=== PATIENT | female | born 1955 | race African-American/Black ===

== ENCOUNTER 2016-12-05 13:57 | Emergency (ER) | payer OTHER ==
[~2016-12-05] VITALS: Ht 162.6 cm; Wt 46.1 kg
[~2016-12-05 13:57] MED LIST: ASPIR 8181 M1 PO; NABI650T PO; Nephro-Vite,Rena-Vit PO; Phoslo PO; RENVELA800 MG PO; Rocaltrol PO; Sodium Bicarbonate PO; TRAZODONE HCL50 MG PO; VITAMIN D1000 INTUN PO; Vitamin B-12 PO
[2016-12-05 16:23] LABS: HEMATOCRIT 32.8 % (36.0-46.0); MCH 27.9 PG (29.0-34.0); MCHC 31.1 G/DL (30.0-36.0); MCV 89.9 FL (83-99); MEAN PLAT.VOLUME 9.4 uM^3 (9.5-12.4); PLATELET COUNT 163 K/uL (156-360); RBC DIS.WIDTH-CV 14.6 % (11.8-14.6); RBC DIS.WIDTH-SD 46.7 % (39-53); RED BLOOD COUNT 3.65 M/uL (3.80-5.20); WHITE BLOOD COUNT 11.5 K/uL (4.1-10.2)
[2016-12-05 16:30] LABS: CHLORIDE 99 mEq/L (99-109); POTASSIUM 3.7 mEq/L (3.7-5.4); SODIUM 138 mEq/L (136-147)
[2016-12-05 16:32] LABS: GLUCOSE 107 mg/dL (70-99)
[2016-12-05 16:33] LABS: ANION GAP 13 MEQ/L (2-14)
[2016-12-05 16:36] LABS: GFR ESTIMATE (CALCULATED) 6 mL/min/
[2016-12-05 16:37] LABS: UREA NITROGEN (BUN) 33 mg/dL (9-23)
[2016-12-05] MEDS ORDERED: OXAYDO5 MG PO (16:44)
[2016-12-05] MEDS ORDERED: SENSIPAR30 MG PO (16:44)
[2016-12-05 17:12] LABS: ADD MIUA? YES; BILIRUBIN NEGATIVE; BLOOD LARGE; COLOR YELLOW ((YELLOW)); GLUCOSE (STRIP) NEGATIVE; KETONES NEGATIVE; LEUKOCYTES MODERATE; NITRITE NEGATIVE; PROTEIN (STRIP) 30; SPECIFIC GRAVITY 1.006 (1.000-1.030); UROBILINOGEN 0.2 MG/DL (0.2-1.0)
[2016-12-05 17:22] LABS: BACTERIA RARE /HPF; EPITHELIAL CELLS RARE /HPF; MUCUS TRACE /LPF
[2016-12-05] MEDS ORDERED: MACROBID100 MG PO (17:28)
[2016-12-05 18:07] VITALS: BP 110/69
== END 2016-12-05 18:08 | disposition home or self-care (01) ==
LOC: EME 13:57 → EXP 13:57
PROVIDERS: Physician Assistant
DX: N39.0 Urinary tract infection, site not specified (principal); N18.6 End stage renal disease; Z99.2 Dependence on renal dialysis; Z79.82 Long term (current) use of aspirin; Z79.891 Long term (current) use of opiate analgesic; F17.200 Nicotine dependence, unspecified, uncomplicated
CPT/HCPCS: 71020; 80048; 81003; 85027; 87086; 99281; 99284

== ENCOUNTER 2017-03-19 10:03 | Emergency (ER) | payer OTHER ==
[~2017-03-19] VITALS: Ht 162.6 cm; Wt 46.0 kg
[~2017-03-19 10:03] MED LIST changes: +MACROBID100 MG PO; +OXAYDO5 MG PO; +SENSIPAR30 MG PO
[2017-03-19 10:12] VITALS: BP 190/96
[2017-03-19] MEDS ORDERED: NORCO 5/3251 TABLET PO (11:57)
[2017-03-19] MEDS ORDERED: FLEXERIL10 MG PO (11:57)
== END 2017-03-19 12:13 | disposition home or self-care (01) ==
LOC: EME 10:03
DX: S16.1XXA Strain of muscle, fascia and tendon at neck level, initial encounter (principal); M54.5 Low back pain; R51 Headache; R42 Dizziness and giddiness; V59.50XA Passenger in pick-up truck or van injured in collision with unspecified motor vehicles in traffic accident, initial encounter; I12.0 Hypertensive chronic kidney disease with stage 5 chronic kidney disease or end stage renal disease; N18.6 End stage renal disease; Z99.2 Dependence on renal dialysis; Z85.41 Personal history of malignant neoplasm of cervix uteri; F17.200 Nicotine dependence, unspecified, uncomplicated
CPT/HCPCS: 72125; 72131; 99281; 99284; J1885